=== PATIENT | female | born 1965 | race Caucasian/White ===

== ENCOUNTER → 2024-12-20 14:09 | Outpatient (REF) | payer OTHER, SELFPAY | LOC: WDC 14:09 | PROVIDERS: ATTENDING PHYSICIAN Obstetrics & Gynecology; FAMILY PHYSICIAN Family Medicine | DX: Z12.31 Encounter for screening mammogram for malignant neoplasm of breast (principal) | CPT/HCPCS: 77063; 77067 ==

== ENCOUNTER → 2025-02-18 09:48 | Outpatient (REF) | payer OTHER, SELFPAY | LOC: RCS 09:48 | PROVIDERS: ATTENDING PHYSICIAN Family Medicine | DX: I20.89 Other forms of angina pectoris (principal) | CPT/HCPCS: 93017 ==